=== PATIENT | female | born 1980 | race Caucasian/White ===

== ENCOUNTER 2016-12-27 09:09 | Emergency (ER) | payer MEDICAID ==
[2016-12-27 09:22] VITALS: BP 109/88
== END 2016-12-27 10:15 | disposition home or self-care (01) ==
LOC: ED 09:09
DX: L30.9 Dermatitis, unspecified (principal)

== ENCOUNTER 2018-04-15 11:44 | Emergency (ER) | payer OTHER ==
[~2018-04-15] VITALS: Ht 157.5 cm; Wt 58.2 kg
[2018-04-15 11:57] VITALS: BP 132/101; Ht 157.5 cm; Wt 58.2 kg
[2018-04-15 12:45] LABS: microscopic required? NO
[2018-04-15 12:59] LABS: UA SPECIFIC GRAVITY <=1.005 (1.005-1.035); urine erythrocyte NEGATIVE (NEGATIVE)
== END 2018-04-15 13:52 | disposition home or self-care (01) ==
LOC: ED 11:44
PROVIDERS: Emergency Medicine
DX: R30.0 Dysuria (principal); R35.0 Frequency of micturition; R68.83 Chills (without fever); R10.2 Pelvic and perineal pain; Q68.8 Other specified congenital musculoskeletal deformities
CPT/HCPCS: Q0092

== ENCOUNTER 2018-04-24 10:32 | Emergency (ER) | payer OTHER ==
[~2018-04-24] VITALS: Ht 157.5 cm; Wt 59.0 kg
[2018-04-24 10:38] VITALS: Ht 157.5 cm; Wt 59.0 kg
[2018-04-24 11:41] LABS: BASOPHIL % 0.2 % (0-2); PLATELET COUNT 263 x10^3mcL (130-400); RED CELL DISTRIBUTION WIDTH 14.2 % (11.5-14.5)
[2018-04-24 11:47] LABS: CALCIUM 8.7 mg/dL (8.5-10.1); CARBON DIOXIDE 22.7 mmol/L (21-32); CHLORIDE SERUM 106 mmol/L (98-107); CREATININE SERUM 0.3 mg/dL (0.6-1.0); GFR1 > 60 mL/min; GLUCOSE SERUM 82 mg/dL (74-106); POTASSIUM SERUM 3.9 mmol/L (3.5-5.1); SODIUM SERUM 138 mmol/L (136-145)
[2018-04-24 11:52] LABS: ALBUMIN 3.7 g/dL (3.4-5.0); ALKALINE PHOSPHATASE 69 U/L (46-116); ALT/SGPT 23 U/L (14-59); AST/SGOT 14 U/L (15-37); BILIRUBIN TOTAL 0.2 mg/dL (0.20-1.00); TOTAL PROTEIN, SERUM 7.3 g/dL (6.4-8.2)
[2018-04-24 13:12] LABS: microscopic required? YES; urine erythrocyte NEGATIVE (NEGATIVE)
[2018-04-24 14:40] VITALS: BP 106/72
== END 2018-04-24 14:40 | disposition home or self-care (01) ==
LOC: ED 10:32
PROVIDERS: Emergency Medicine
DX: R51 Headache (principal); F41.9 Anxiety disorder, unspecified; Z98.890 Other specified postprocedural states
CPT/HCPCS: 20552; 36415; J2001

== ENCOUNTER 2018-07-25 13:29 | Emergency (ER) | payer OTHER | END 2018-07-25 16:31 | disposition home or self-care (01) | LOC: ED 13:29 ==